=== PATIENT | female | born 1985 | race Caucasian/White ===

== ENCOUNTER 2017-01-17 15:41 | Emergency (ER) | payer OTHER ==
[~2017-01-17] VITALS: Ht 162.6 cm; Wt 55.8 kg
[~2017-01-17 15:41] MED LIST: KEFLEX500 MG PO; MOTRIN800 MG PO; NORMODYNE,TRAN200 MG PO; PRENATAL TABLE1 EAC3 PO; VITAMIN D31000 UNIT PO; ZANTAC75 M1 PO
[2017-01-17 16:56] LABS: HEMATOCRIT 38.8 % (36.0-46.0); MCH 29.4 PG (29.0-34.0); MCV 89.2 FL (83-99); MEAN PLAT.VOLUME 9.1 uM^3 (9.5-12.4); PLATELET COUNT 247 K/uL (156-360); RBC DIS.WIDTH-CV 12.8 % (11.8-14.6); RBC DIS.WIDTH-SD 41.9 % (39-53); RED BLOOD COUNT 4.35 M/uL (3.80-5.20); WHITE BLOOD COUNT 7.5 K/uL (4.1-10.2)
[2017-01-17 17:01] LABS: ADD MIUA? NO; BILIRUBIN NEGATIVE; BLOOD NEGATIVE; COLOR YELLOW ((YELLOW)); GLUCOSE (STRIP) NEGATIVE; KETONES NEGATIVE; LEUKOCYTES NEGATIVE; NITRITE NEGATIVE; PROTEIN (STRIP) NEGATIVE; SPECIFIC GRAVITY 1.025 (1.000-1.030); UCUL ADDED? NO; UROBILINOGEN 0.2 MG/DL (0.2-1.0)
[2017-01-17 17:08] LABS: CHLORIDE 106 mEq/L (99-109); POTASSIUM 3.9 mEq/L (3.7-5.4); SODIUM 141 mEq/L (136-147)
[2017-01-17 17:10] LABS: GLUCOSE 95 mg/dL (70-99)
[2017-01-17 17:11] LABS: ANION GAP 10 MEQ/L (2-14)
[2017-01-17 17:12] LABS: TOTAL BILIRUBIN 0.3 mg/dL (0.0-1.0)
[2017-01-17 17:13] LABS: ALKALINE PHOSPHATASE 67 IU/L (3-129)
[2017-01-17 17:14] LABS: GFR ESTIMATE (CALCULATED) > 59 mL/min/
[2017-01-17 17:15] LABS: UREA NITROGEN (BUN) 15 mg/dL (9-23)
[2017-01-17 17:17] LABS: LIPASE 55 U/L (1.0-51.0)
[2017-01-17 17:23] LABS: QUANTITATIVE HCG < 4.0 MIU/ML
[2017-01-17 17:54] VITALS: BP 132/82
== END 2017-01-17 17:56 | disposition home or self-care (01) ==
LOC: EME 15:41
DX: R10.9 Unspecified abdominal pain (principal); G89.29 Other chronic pain
CPT/HCPCS: 80053; 81003; 83690; 84702; 85027; 99281; 99283

== ENCOUNTER → 2017-10-02 | Outpatient (CLI) | payer OTHER | END | disposition home or self-care (01) | LOC: NUC 08:28 | DX: R10.11 Right upper quadrant pain (principal); K21.9 Gastro-esophageal reflux disease without esophagitis | CPT/HCPCS: 78227; A9537; J2805 ==